=== PATIENT | female | born 1940 | race Caucasian/White ===

== ENCOUNTER → 2016-10-20 | Outpatient (CLI) | payer OTHER ==
--- NOTE | 2016-10-20 11:21 | MR ---
MRI Thoracic Spine Without Contrast 0920 hours History: M54.6, thoracic pain. Prior osteomyelitis. Status post T10-T11 fusion. Comparison: MRI December 2004. Technique: Sagittal T1/T2/STIR and axial T1/T2-weighted MR series of the thoracic spine without contr ast. Findings: No acute thoracic compression fracture, bone marrow edema, diskitis, osteomyelitis, or epid ural abscess. Sagittal images through the lower thoracic spine demonstrate C5-C6 and C6-C7 severe degenerative disk disease with dorsal disk/osteophyte complexes resulting in moderate to severe central canal stenosis with cord compression and deformity, worse at C5-C6. T1-T2: Moderate degenerative disk disease with left paramedian disk/osteophyte complex resulting in m ild central canal stenosis and mild to moderate bilateral neural foraminal stenosis. T2-T3: Mild degenerative disk disease with minimal dorsal disk/osteophyte complex. No central canal o r neural foraminal stenosis. T3-T4: Mild degenerative disk disease with ventral osteophytes. No disk herniation or stenosis. T4-T5: Mild degenerative disk disease with minimal dorsal disk/osteophyte complex. No central canal o r neural foraminal stenosis. T5-T6: Mild degenerative disk disease with minimal dorsal disk/osteophyte complex. No central canal o r neural foraminal stenosis. T6-T7: Mild degenerative disk disease with dorsal disk/osteophyte complex from a right paramedian dis k protrusion and moderate bilateral facet arthropathy resulting in mild central canal stenosis and mi ld to moderate right neural foraminal stenosis. T7-T8: Moderate degenerative disk disease with bilateral paramedian disk/osteophyte complexes and sup erimposed focal disk herniation, protrusion, resulting in severe central canal stenosis with cord com pression and deformity and mild to moderate bilateral neural foraminal stenosis. No cord edema or mye lomalacia. T8-T9: Moderate degenerative disk disease with right and left paramedian dorsal disk/osteophyte compl exes resulting in severe central canal stenosis with cord compression and deformity and mild to moder ate bilateral neural foraminal stenosis. No cord edema or myelomalacia. T9-T10: Severe degenerative disk disease with endplate diskogenic changes, circumferential disk/osteo phyte complex and moderate bilateral facet arthropathy resulting in severe central canal stenosis wit h mild cord compression and moderate bilateral neural foraminal stenosis. No definite cord edema. T10-T11: Almost complete loss of disk space with apparent bony fusion in the region of previous diski tis with moderate bilateral facet arthropathy resulting in moderate to severe right neural foraminal stenosis and mild to moderate left neural foraminal stenosis without central canal stenosis. T11-T12: Severe degenerative disk disease with severe loss of disk height, circumferential disk bulge and osteophytes, retrolisthesis and severe bilateral facet arthropathy resulting in moderate central canal stenosis and moderate to severe bilateral neural foraminal stenosis. No cord compression or de formity. T12-L1: No disk herniation or stenosis. Impression: 1. Severe cervical spondylosis at C5-C6 and C6-C7 resulting in severe central canal stenosis with cor d compression. Consider MRI cervical spine for further evaluation. 2. No evidence of thoracic diskitis, osteomyelitis, or epidural abscess. 3. T7-T8: Severe central canal stenosis with cord compression and deformity and mild to moderate bila teral neural foraminal stenosis secondary to moderate degenerative disk disease with bilateral parame miranda disk/osteophyte complexes and disk herniation. 4. T8-T9: Severe central canal stenosis secondary to moderate degenerative disk disease with dorsal d isk/osteophyte complexes. 5. T9-T10: Severe central canal stenosis and cord compression with moderate bilateral neural foramina l stenosis secondary to severe degenerative disk disease with dorsal disk/osteophyte complexes and mo derate bilateral facet arthropathy. 6. T10-T11: Residual disk space narrowing from prior diskitis. No recurrent diskitis. However, residu al severe disk space narrowing resulting in moderate to severe bilateral neural foraminal stenosis wi thout central canal stenosis. 7. T11-T12: Severe degenerative disk disease and degenerative retrolisthesis with disk/osteophyte com plexes resulting in moderate central canal stenosis and moderate to severe bilateral neural foraminal stenosis.
== END ==
LOC: FIMAGING 09:00
PROVIDERS: ATTEND Physical Medicine & Rehabilitation
DX: M47.892 Other spondylosis, cervical region (principal); M48.02 Spinal stenosis, cervical region; M48.04 Spinal stenosis, thoracic region; M51.34 Other intervertebral disc degeneration, thoracic region; M46.94 Unspecified inflammatory spondylopathy, thoracic region; Z98.1 Arthrodesis status

== ENCOUNTER → 2016-10-28 | Outpatient (CLI) | payer OTHER ==
--- NOTE | 2016-10-28 19:51 | MR ---
MRI of the Cervical Spine (Without Contrast) History: Evaluate for cervical spinal stenosis. Cervical disease identified on prior thoracic MRI. Technique: Sagittal T1 and T2 sequences. Axial T2 and gradient echo sequences. Findings: C2-C3: Negative. C3-C4: Disk desiccation and central annular bulging, without discrete disk prolapse or neural impinge ment. C4-C5: Disk desiccation and intervertebral disk height loss, without discrete disk prolapse or neural impingement. C5-C6: Moderate-sized subligamentous central disk protrusion, contributing to moderate acquired centr al canal stenosis, without cervical cord myelomalacia. Foramina are moderately stenotic bilaterally. C6-C7: Moderate-sized subligamentous central disk protrusion, contributing to moderate acquired centr al canal stenosis. Neural foramina are moderately stenotic bilaterally secondary to annular bulging. C7-T1: Negative. The cervical cord maintains normal signal intensity. The craniocervical junction appears normal. Impression: 1. Moderate-sized subligamentous central disk protrusions at C5-C6 and C6-C7, with secondary moderate acquired central canal stenosis. 2. Associated bilateral neural foraminal stenosis at both levels.
== END ==
LOC: FIMAGING 15:08
PROVIDERS: ATTEND Physical Medicine & Rehabilitation
DX: M48.02 Spinal stenosis, cervical region (principal); M50.822 Other cervical disc disorders at C5-C6 level; M50.823 Other cervical disc disorders at C6-C7 level

== ENCOUNTER 2017-01-02 07:56 | Day surgery (SDC) | payer OTHER ==
[2017-01-02] MEDS ORDERED: MIDAZOLAM 2 MG/2 ML VIAL IVP ONE (08:03)
[2017-01-02] MEDS ORDERED: PROPOFOL 200 MG/20 ML VIAL IVP ONE (08:03)
[2017-01-02] MEDS ORDERED: fentaNYL 100 MCG/2 ML INJ IVP ONE (08:03)
[2017-01-02] MEDS ORDERED: NS 500 ML IV ONE (08:03)
[2017-01-02] MEDS ORDERED: BENZOCAINE UNIT DOSE SPRAY HURRICAINE MM ONE (08:03)
--- NOTE | 2017-01-02 08:35 | CPEKG ---
Heart Rate: 61 RR Interval: 984 P-R Interval: 176 QRSD Interval: 90 QT Interval: 476 QTC Interval: 480 P [place]: 27 QRS [place]: 7 T Wave [place]: 15 EKG Severity - NORMAL ECG - EKG Impression: SINUS RHYTHM Electronically Signed By: Balaji Deutsch 02-Jan-2017 09:17:36
== END 2017-01-02 08:30 | disposition home or self-care (01) ==
LOC: FCATH 07:56
PROVIDERS: ATTEND Internal Medicine Cardiovascular Disease
DX: I48.91 Unspecified atrial fibrillation (principal); I50.33 Acute on chronic diastolic (congestive) heart failure; I10 Essential (primary) hypertension; I25.10 Atherosclerotic heart disease of native coronary artery without angina pectoris; Z53.09 Procedure and treatment not carried out because of other contraindication

== ENCOUNTER → 2017-01-12 | Outpatient (CLI) | payer OTHER | LOC: BHFA 15:00 | PROVIDERS: ATTEND Internal Medicine Cardiovascular Disease | DX: I25.10 Atherosclerotic heart disease of native coronary artery without angina pectoris (principal); I48.91 Unspecified atrial fibrillation; I50.32 Chronic diastolic (congestive) heart failure; I27.2 Other secondary pulmonary hypertension ==

== ENCOUNTER → 2017-06-26 | Outpatient (CLI) | payer OTHER | LOC: FIMAGING 08:48 | PROVIDERS: ATTEND Internal Medicine | DX: Z12.31 Encounter for screening mammogram for malignant neoplasm of breast (principal) | CPT/HCPCS: G0202 ==

== ENCOUNTER → 2017-09-11 | Outpatient (CLI) | payer OTHER | LOC: BHFA 10:00 | PROVIDERS: ATTEND Internal Medicine Cardiovascular Disease | DX: R06.02 Shortness of breath (principal); I25.10 Atherosclerotic heart disease of native coronary artery without angina pectoris ==

== ENCOUNTER 2017-11-08 11:11 | Observation (INO) | payer OTHER ==
--- NOTE | 2017-11-08 11:41 | CPEKG ---
Heart Rate: 62 RR Interval: 968 P-R Interval: 184 QRSD Interval: 80 QT Interval: 476 QTC Interval: 484 P [place]: 26 QRS [place]: 2 T Wave [place]: 19 EKG Severity - NORMAL ECG - EKG Impression: SINUS RHYTHM Electronically Signed By: Shabbir Lerma 08-Nov-2017 13:30:26
[2017-11-08 11:56] LABS: PLATELET COUNT 79 10^3/uL (150-400)
[2017-11-08] MEDS ORDERED: NS 1,000 ML IV ONE (12:06)
[2017-11-08] MEDS ORDERED: IOPAMIDOL (ISOVUE 370) 100 ML BTL IV ONE (13:10)
--- NOTE | 2017-11-08 13:15 | EDPHY ---
H & P Stated Complaint: sent to r/o PNA/syncope this week/ hurt r ankle Time Seen by Provider: 11/08/17 11:28 HPI/ROS: Chief Complaint: Cough, syncope, ankle injury HPI: 77-year-old woman had upper respiratory symptoms for the last several days with a nonproductive cough. Patient states she has also been having episodes of feeling lightheadedness actually fainted 3 4 times over the last couple of days. These have been usually after standing but she also had an episode when she passed out on the toilet yesterday. This morning she got up and was walking and while walking became lightheaded and fainted once again. She woke with severe right ankle pain. She was seen by her primary care physician's office to evaluate for pneumonia was sent here for further evaluation. Has past medical history significant for hypertension coronary artery disease status post stenting and has had atrial fibrillation in the past. She is not currently anticoagulated. No fevers or chills. She has had this persistent cough for about a week. No chest pain. No abdominal pain. No nausea or vomiting. She did get a flu vaccine this year. ROS: 10 point Review of Systems is negative except as noted in the HPI. PMH: Spinal infection requiring open or cauda me for drainage 20 years ago, sigmoid colectomy status post diverticulitis with subsequent pulmonary embolus Hypertension Coronary artery disease status post stenting Atrial fibrillation in the past Social History: No smoking, no alcohol, no recreational drug use Family History: non-contributory Physical Exam: Gen: Awake, Alert, No Distress HEENT: Nose: no rhinorrhea Eyes: PERRLA, EOMI Mouth: Moist mucosa Neck: Supple, no JVD Chest: nontender, mild expiratory colles at the left base at the expiration, no wheeze Heart: S1, S2 normal, no murmur Abd: Soft, non-tender, no guarding Back: no CVA tenderness, no midline tenderness Ext: Right ankle is deformed and edematous with diffuse tenderness. Sensations intact distally. She has 2+ dorsalis pedis pulses. Capillary refills less than 2 sec. Skin: no rash Neuro: CN II-XII intact, Sensation grossly intact, Strength 5/5 in bilateral upper and lower extremities - Personal History Current Tetanus/Diphtheria Vaccine: Yes Tetanus Vaccine Date: 10/21/2010 - Medical/Surgical History Hx Asthma: No Hx Chronic Respiratory Disease: No Hx Diabetes: No Hx Cardiac Disease: Yes Hx Renal Disease: No Hx Cirrhosis: No Hx Alcoholism: No Hx HIV/AIDS: No Hx Splenectomy or Spleen Trauma: No Other PMH: HTN, cardiac stent, glaucoma, appy, thoracotomy, hysterectomy, knee replacement - Social History Smoking Status: Never smoked Constitutional: Initial Vital Signs Temperature (C) 36.3 C 11/08/17 11:17 Heart Rate 66 11/08/17 11:17 Respiratory Rate 18 11/08/17 11:17 Blood Pressure 110/64 11/08/17 11:17 O2 Sat (%) 95 11/08/17 11:17 O2 Delivery Mode Room Air Allergies/Adverse Reactions: No Known Allergies Allergy (Verified 11/08/17 11:16) Home Medications: Medication Instructions Recorded Aspirin [Aspirin 81mg (*)] 162 mg PO HS 10/23/15 Atorvastatin Calcium [Lipitor 10 10 mg PO HS 10/23/15 mg (*)] Brimonidine/Timolol [Combigan (*)] 1 drop EACHEYE BID 10/23/15 Dorzolamide 2% [Trusopt 2% (*)] 1 drops LEFTEYE BID 10/23/15 Linaclotide [Linzess] 145 mcg PO DAILY 10/23/15 Pantoprazole Sodium [Protonix 40mg 40 mg PO DAILY 10/23/15 (*)] Travoprost Z 0.004% [Travatan Z 1 drops EACHEYE HS 10/23/15 0.004% (*)] rOPINIRole HCL [Requip 2mg (*)] 4 mg PO HS 10/23/15 Labetalol HCl [Trandate 200 mg (*)] 400 mg PO BID #0 tab 10/25/15 amLODIPine BESYLATE [Norvasc 5 mg 5 mg PO DAILY #30 tab 10/25/15 (*)] Gabapentin 11/08/17 Potassium 11/08/17 Medical Decision Making - Diagnostics EKG Interpretation: ECG time 11:39 a.m., sinus rhythm with a rate of 62, normal axis, normal intervals, no acute ST or T-wave changes. Impression: Normal ECG. Imaging Results: Imaging Impressions Ankle X-Ray 11/08/17 11:42 Impression: Bimalleolar fracture. Chest X-Ray 11/08/17 11:42 Impression: 1. Chronic or recurrent airways disease. Previous pneumonia has cleared. 2. Cardiomegaly without failure. ED Course/Re-evaluation: 77-year-old woman with recent upper respiratory symptoms he has had multiple syncopal episodes the last 2 days. She has an obvious ankle deformity. Will worker out for both infectious, orthopedic and syncope evaluation. Given her multiple syncopal events she will require admission. ECG is unremarkable Right ankle x-ray shows a bimalleolar fracture. She has been placed in a posterior sugar-tong splint. I have inspected after the splint she has got good immobility with normal perfusion. Will consult Orthopedics. I have discussed with Orthopedics PA. They are happy with a posterior and sugar -tong splint. Nonweightbearing. They do not feel the need to see the patient in the hospital and will be able to follow up with her as an outpatient. She is positive for influenza B. D-dimer is elevated at 3.0. CT angiogram of the chest is ordered. I have discussed with Nikki Morocho, hospitalist DENTAL TECHNICIAN APPRENTICE. Will admit to Dr. tS for further evaluation. - Data Points Laboratory Results: Laboratory Results 11/08/17 11:40 11/08/17 11:40 11/08/17 11/08/17 11/08/17 12:13 11:40 11:40 WBC RBC Hgb Hct MCV MCH MCHC RDW Plt Count MPV Neut % (Auto) Lymph % (Auto) Payne % (Auto) Eos % (Auto) Baso % (Auto) Nucleat RBC Rel Count Absolute Neuts (auto) Absolute Lymphs (auto) Absolute Monos (auto) Absolute Eos (auto) Absolute Basos (auto) Absolute Nucleated RBC Immature Gran % Immature Gran # D-Dimer 3.09 ug/mLFEU H ug/mLFEU (0.00-0.50) Sodium 138 mEq/L mEq/L (135-145) Potassium 4.7 mEq/L mEq/L (3.5-5.2) Chloride 98 mEq/L mEq/L (97-110) Carbon Dioxide 22 mEq/l mEq/l (22-31) Anion Gap 18 mEq/L H mEq/L (8-16) BUN 26 mg/dL H mg/dL (7-23) Creatinine 1.4 mg/dL H mg/dL (0.6-1.0) Estimated GFR 36 Glucose 104 mg/dL H mg/dL (70-100) Calcium 8.8 mg/dL mg/dL (8.5-10.4) Troponin I < 0.012 ng/mL ng/mL (0.000-0.034) Nasal Influenza A PCR NEGATIVE FOR FLU A (NEGATIVE) Nasal Influenza B PCR FLU B DETECTED H (NEGATIVE) 11/08/17 11:40 WBC 5.20 10^3/uL 10^3/uL (3.80-9.50) RBC 4.76 10^6/uL 10^6/uL (4.18-5.33) Hgb 13.9 g/dL g/dL (12.6-16.3) Hct 41.9 % % (38.0-47.0) MCV 88.0 fL fL (81.5-99.8) MCH 29.2 pg pg (27.9-34.1) MCHC 33.2 g/dL g/dL (32.4-36.7) RDW 14.0 % % (11.5-15.2) Plt Count 79 10^3/uL L 10^3/uL (150-400) MPV 12.9 fL H fL (8.7-11.7) Neut % (Auto) 68.4 % % (39.3-74.2) Lymph % (Auto) 18.5 % % (15.0-45.0) Payne % (Auto) 12.3 % % (4.5-13.0) Eos % (Auto) 0.2 % L % (0.6-7.6) Baso % (Auto) 0.2 % L % (0.3-1.7) Nucleat RBC Rel Count 0.0 % % (0.0-0.2) Absolute Neuts (auto) 3.56 10^3/uL 10^3/uL (1.70-6.50) Absolute Lymphs (auto) 0.96 10^3/uL L 10^3/uL (1.00-3.00) Absolute Monos (auto) 0.64 10^3/uL 10^3/uL (0.30-0.80) Absolute Eos (auto) 0.01 10^3/uL L 10^3/uL (0.03-0.40) Absolute Basos (auto) 0.01 10^3/uL L 10^3/uL (0.02-0.10) Absolute Nucleated RBC 0.00 10^3/uL 10^3/uL (0-0.01) Immature Gran % 0.4 % % (0.0-1.1) Immature Gran # 0.02 10^3/uL 10^3/uL (0.00-0.10) D-Dimer Sodium Potassium Chloride Carbon Dioxide Anion Gap BUN Creatinine Estimated GFR Glucose Calcium Troponin I Nasal Influenza A PCR Nasal Influenza B PCR Medications Given: Discontinued Medications Sodium Chloride (Ns) 1,000 mls @ 0 mls/hr IV ONCE ONE; Wide Open PRN Reason: Protocol Stop: 11/08/17 12:07 Last Admin: 11/08/17 12:26 Dose: 1,000 mls Departure - Departure Disposition: [facility] Inpatient Acute Clinical Impression: Syncope, Influenza, Bimalleolar ankle fracture Condition: Fair Referrals: Honey Oconnell MD [Primary Care Provider] - As per Instructions
[2017-11-08] MEDS ORDERED: HYDROmorphONE/DILAUDID 2 MG TAB PO PRN (13:58)
[2017-11-08] MEDS ORDERED: ONDANSETRON DISINTEGRATING 4 MG TAB PO PRN (13:58)
[2017-11-08] MEDS ORDERED: ACETAMINOPHEN 325 MG TAB PO PRN (13:58)
[2017-11-08] MEDS ORDERED: ONDANSETRON 4 MG/2 ML VIAL IVP PRN (13:58)
[2017-11-08] MEDS ORDERED: HYDROmorphONE/DILAUDID 1 MG/ML INJ IVP PRN (13:58)
[2017-11-08] MEDS ORDERED: POLYETHYLENE GLYCOL 3350 17 GM PKT PO PRN (14:06)
[2017-11-08] MEDS ORDERED: BISACODYL 10 MG SUPP PR PRN (14:06)
[2017-11-08] MEDS ORDERED: LACTULOSE 20 GM/30 ML UDCUP PO PRN (14:06)
[2017-11-08] MEDS ORDERED: MAGNESIUM HYDROXIDE 30 ML UDCUP PO PRN (14:06)
[2017-11-08] MEDS ORDERED: guaiFENesin/CODEINE PHOS 10 ML UDCUP PO PRN (14:51)
[2017-11-08] MEDS ORDERED: BENZONATATE 100 MG CAP PO PRN (14:51)
[2017-11-08] MEDS ORDERED: oxyCODONE IR 5 MG TAB ONE (15:03)
[2017-11-08] MEDS: oxyCODONE IR 5 MG TAB PO PRN ×2 (15:06→19:16)
--- NOTE | 2017-11-08 15:26 | PDGENHP ---
History and Physical - Chief Complaint Acute syncope - History of Present Illness Primary care provider: Dr. Honey Oconnell Primary dry wall plasterer: Dr. Rony Orourke HPI: 77-year-old female presenting with acute syncope characterized as complete loss of consciousness with onset of symptoms on the day of this presentation, but previous episodes during the days leading up to this presentation. This occurred in the context of approximately 2 weeks of general malaise, associated lightheadedness, exacerbated by standing and ambulating, nonproductive cough. She has had poor appetite and low oral intake of solids and liquids. She has continued to take all of her home medications as prescribed. She saw her primary dry wall plasterer 1 week ago, he reviewed her echocardiogram from August of 2017, no interventions were performed at that time. Prior to her onset of the symptoms, the patient had otherwise been experiencing a couple years of exertional shortness of breath, low energy. During the past 2 weeks, she has not noted a significant worsening of either of those 2 symptoms , but she has had these episodes of on anticipated, brief loss of consciousness , when she awakens on the floor. On the day of this presentation, the patient experienced loss of consciousness without any precipitating chest pain or palpitations, awoke on the floor, with pain located in her right ankle. The pain is exacerbated by ambulating. She has also noted a bruise on her right hip. History Information - Allergies/Home Medication List Allergies/Adverse Reactions: JOSÉ MIGUEL Inhibitors Allergy (Verified 11/08/17 14:27) Other-Enter Comments Home Medications: Aspirin [Aspirin 81mg (*)] 162 mg PO HS 10/23/15 [Last Taken 11/07/17] Atorvastatin Calcium [Lipitor 10 mg (*)] 10 mg PO DAILY 10/23/15 [Last Taken ] Brimonidine/Timolol [Combigan (*)] 1 drop EACHEYE BID 10/23/15 [Last Taken 11/08] Dorzolamide 2% [Trusopt 2% (*)] 1 drops LEFTEYE BID 10/23/15 [Last Taken ] Pantoprazole Sodium [Protonix 40mg (*)] 40 mg PO DAILY 10/23/15 [Last Taken ] Travoprost Z 0.004% [Travatan Z 0.004% (*)] 1 drops EACHEYE HS 10/23/15 [Last Taken 11/07/17] rOPINIRole HCL [Requip 2mg (*)] 3 mg PO HS 10/23/15 [Last Taken 11/07/17] Cephalexin [Keflex (*)] 2,000 mg PO ONCE 11/08/17 [Last Taken Unknown] Ethacrynic Acid [Edecrin 25 MG (*)] 100 mg PO DAILY 11/08/17 [Last Taken ] Gabapentin [Neurontin 300 MG (*)] 300 mg PO TID 11/08/17 [Last Taken 11/08/17] Hydrocodone/Acetaminophen [Thornton 5/325 (*)] 1 - 2 tab PO Q4H PRN 11/08/17 [Last Taken Unknown] Labetalol HCl [Trandate 200 mg (*)] 600 mg PO TID 11/08/17 [Last Taken 11/08/17] Potassium Chloride 20 meq PO BID 11/08/17 [Last Taken 11/08/17] Spironolactone [Aldactone 25 MG (*)] 12.5 mg PO DAILY 11/08/17 [Last Taken 11/08] I have personally reviewed and updated: family history, medical history, social history, surgical history - Past Medical History coronary artery disease (Previous cardiac stent), GERD, glaucoma, hypertension, hyperlipidemia Additional medical history: Chronic kidney disease stage 3 with baseline creatinine 1.1-1.2. Provoked pulmonary embolism remotely. Provoked atrial fibrillation remotely, symptomatic at that time. Restless leg syndrome. VZV. Peptic ulcer disease - Surgical History Additional surgical history: Spinal drainage 20 years ago. Partial colectomy for diverticulitis. Appendectomy. Hysterectomy. 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 exercises with weights twice weekly Review of Systems Review of Systems: ROS: 10pt was reviewed & negative except for what was stated in HPI & below Constitutional: Reports: malaise, weakness Respiratory: Reports: cough (Nonproductive) Neurological: Reports: other (Loss of consciousness) Physical Exam Physical Exam: Temp Pulse Resp BP Pulse Ox 36.3 C 71 16 115/68 96 01/24/18 11:17 11/08/17 14:00 11/08/17 14:00 11/08/17 14:00 11/08/17 14:00 Constitutional: no apparent distress, appears nourished, not in pain, uncomfortable (Right foot) Eyes: PERRL, anicteric sclera, EOMI Ears, Nose, Mouth, Throat: moist mucous membranes, hearing normal, ears appear normal, no oral mucosal ulcers Cardiovascular: regular rate and rhythym, no murmur, rub, or gallop, No edema Respiratory: no respiratory distress, no rales or rhonchi, clear to auscultation Gastrointestinal: normoactive bowel sounds, soft, non-tender abdomen, no palpable masses, distension (Mild) Genitourinary: no bladder fullness, no bladder tenderness Musculoskeletal: other (Right lower extremity cast) Neurologic: AAOx3, sensation intact bilaterally, CN II-XII Intact, No weakness ( Motor strength 5/5 bilateral distal toes), No facial droop Psychiatric: interacting appropriately, not anxious, not encephalopathic, thought process linear Lab Data & Imaging Review 11/08/17 11:40 11/08/17 11:40 WBC 5.20 10^3/uL (3.80-9.50) 11/08/17 11:40 RBC 4.76 10^6/uL (4.18-5.33) 11/08/17 11:40 Hgb 13.9 g/dL (12.6-16.3) 11/08/17 11:40 Hct 41.9 % (38.0-47.0) 11/08/17 11:40 MCV 88.0 fL (81.5-99.8) 11/08/17 11:40 MCH 29.2 pg (27.9-34.1) 11/08/17 11:40 MCHC 33.2 g/dL (32.4-36.7) 11/08/17 11:40 RDW 14.0 % (11.5-15.2) 11/08/17 11:40 Plt Count 79 10^3/uL (150-400) L 11/08/17 11:40 MPV 12.9 fL (8.7-11.7) H 11/08/17 11:40 Neut % (Auto) 68.4 % (39.3-74.2) 11/08/17 11:40 Lymph % (Auto) 18.5 % (15.0-45.0) 11/08/17 11:40 [place]in[place] % (Auto) 12.3 % (4.5-13.0) 11/08/17 11:40 Eos % (Auto) 0.2 % (0.6-7.6) L 11/08/17 11:40 Baso % (Auto) 0.2 % (0.3-1.7) L 11/08/17 11:40 Nucleat RBC Rel Count 0.0 % (0.0-0.2) 11/08/17 11:40 Absolute Neuts (auto) 3.56 10^3/uL (1.70-6.50) 11/08/17 11:40 Absolute Lymphs (auto) 0.96 10^3/uL (1.00-3.00) L 11/08/17 11:40 Absolute Monos (auto) 0.64 10^3/uL (0.30-0.80) 11/08/17 11:40 Absolute Eos (auto) 0.01 10^3/uL (0.03-0.40) L 11/08/17 11:40 Absolute Basos (auto) 0.01 10^3/uL (0.02-0.10) L 11/08/17 11:40 Absolute Nucleated RBC 0.00 10^3/uL (0-0.01) 11/08/17 11:40 Immature Gran % 0.4 % (0.0-1.1) 11/08/17 11:40 Immature Gran # 0.02 10^3/uL (0.00-0.10) 11/08/17 11:40 D-Dimer 3.09 ug/mLFEU (0.00-0.50) H 11/08/17 11:40 Sodium 138 mEq/L (135-145) 11/08/17 11:40 Potassium 4.7 mEq/L (3.5-5.2) 11/08/17 11:40 Chloride 98 mEq/L (97-110) 11/08/17 11:40 Carbon Dioxide 22 mEq/l (22-31) 11/08/17 11:40 Anion Gap 18 mEq/L (8-16) H 11/08/17 11:40 BUN 26 mg/dL (7-23) H 11/08/17 11:40 Creatinine 1.4 mg/dL (0.6-1.0) H 11/08/17 11:40 Estimated GFR 36 11/08/17 11:40 Glucose 104 mg/dL (70-100) H 11/08/17 11:40 Calcium 8.8 mg/dL (8.5-10.4) 11/08/17 11:40 Troponin I < 0.012 ng/mL (0.000-0.034) 11/08/17 11:40 Nasal Influenza A PCR NEGATIVE FOR FLU A (NEGATIVE) 11/08/17 12:13 Nasal Influenza B PCR FLU B DETECTED (NEGATIVE) H 11/08/17 12:13 Visualized and Interpreted Chest x-ray results: Yes Chest X-Ray results: no infiltrate (Cardiomegaly) Visualized and Interpreted EKG results: Yes EKG Interpretation: Positive for: other (T-wave inversion in lead 3) Assessment & Plan Assessment: 77-year-old female presenting with acute syncope and traumatic right bimalleolar fracture in the setting of influenza B Plan: 1. Influenza B viral syndrome. Symptoms include nonproductive cough, lethargy , anorexia, diarrhea, resulting in hypovolemia and most likely precipitating cause of her syncope -supportive care with antitussives, mucolytic -continue IV fluids -continue dietary intake 2. Syncope. Acute, new problem this provider, further workup indicated. Most likely secondary to orthostasis in the setting of hypovolemia and ongoing antihypertensive medications -ruled out pulmonary embolism with negative CT angiogram -given patient's trauma and bruise along her right hip, get hip x-ray -get orthostatic vital signs next continue on IV normal saline, repeat orthostatics in a.m. -monitor on telemetry overnight given history of atrial fibrillation, she previously had symptomatic atrial fibrillation and has not been experiencing any of those symptoms in the context of this episode of care -hold off on further neurovascular workup given that the most likely cause is hypovolemia -hold antihypertensive medications -reviewed outside records including 11/11/[address] Manuel Solares, describing normal ejection fraction, elevated end-diastolic filling pressure, diffuse nonobstructive coronary disease, do not believe that further cardiac risk stratification is indicated at this point given that the patient reports a normal echocardiogram from August of 2017 and patient's cardiac catheterization was performed in the context of the exertional shortness of breath and lethargy she has been experiencing for the past 2 years with no clearly identifiable cardiopulmonary cause other than possible pulmonary hypertension 3. Acute kidney injury on chronic kidney disease stage 3. Most likely secondary to hypovolemia, baseline serum creatinine level 1.11.2, currently 1.4 with elevated BUN, reported hypovolemia -continue IV normal saline, monitor strict I&Os, daily creatinine level 4. Traumatic bimalleolar fracture. Right ankle, orthopedics contacted by emergency department, recommended the patient be placed in a splint, be nonweightbearing, pain medication as needed, follow up with Orthopedics as an outpatient -oxycodone as needed, Tylenol as needed -physical occupational therapy eval as, patient reports that she is particularly dexterous on crutches and will likely be able to discharge home tomorrow if above stable 5. Coronary artery disease. Chronic, holding Aldactone, holding labetalol, continue aspirin and statin 6. Thrombocytopenia. Acute on chronic, review of previous CBCs demonstrates mild thrombocytopenia but not to quite this extent, continue to monitor, may recommend outpatient hematology evaluation depending on tomorrow's lab values Diet. Regular Prophylaxis. High risk patient, holding pharmacologic given thrombocytopenia, SCD Code. Full Disposition. Anticipated discharge 11/09, pending further workup as outlined above. I have discussed patient's presentation with Nikki Morocho, hospitalist provider, she has signed out the patient to me for evaluation.
[2017-11-08] MEDS: GABAPENTIN 300 MG CAP PO SCH ×2 (16:53→20:56)
[2017-11-08] MEDS: NS 1,000 ML IV SCH (19:16)
[2017-11-08] MEDS: guaiFENesin 600 MG TAB.ER PO SCH (20:56)
[2017-11-08] MEDS: BRIMONIDINE/TIMOLOL 5 ML OPHT.BTL EACHEYE SCH (20:57)
[2017-11-08] MEDS: DORZOLAMIDE 2% OPTH DROPS LEFTEYE SCH (20:57)
[2017-11-08] MEDS ORDERED: TRAVOPROST Z 0.004% 2.5 ML OPHT.BTL EACHEYE SCH (21:00)
[2017-11-08] MEDS ORDERED: SENNOSIDES/DOCUSATE SODIUM TAB PO SCH (21:00)
[2017-11-08] MEDS ORDERED: ASPIRIN 81 MG CHEWABLE TAB PO SCH (21:00)
[2017-11-09] MEDS: oxyCODONE IR 5 MG TAB PO PRN ×2 (01:25→08:30)
[2017-11-09] MEDS: NS 1,000 ML IV SCH (01:26)
[2017-11-09 04:43] LABS: PLATELET COUNT 55 10^3/uL (150-400)
[2017-11-09] MEDS: GABAPENTIN 300 MG CAP PO SCH (08:31)
[2017-11-09] MEDS: guaiFENesin 600 MG TAB.ER PO SCH (08:31)
[2017-11-09] MEDS: DORZOLAMIDE 2% OPTH DROPS LEFTEYE SCH (08:34)
[2017-11-09] MEDS: BRIMONIDINE/TIMOLOL 5 ML OPHT.BTL EACHEYE SCH (08:34)
[2017-11-09] MEDS ORDERED: ATORVASTATIN CALCIUM 10 MG TAB PO SCH (09:00)
[2017-11-09] MEDS ORDERED: PANTOPRAZOLE SODIUM 40 MG TAB PO SCH (09:00)
--- NOTE | 2017-11-09 10:15 | ASMTCASEMG ---
Living Arrangements What is your living Answers: With Spouse arrangement? Who do you live with? Type Of Residence What kind of residence do Answers: House you live in? Discharge Plan Comments Coordination Status Comments Notes: Pt is a 77 y/o female admitted for syncope, influenza, and bimalleolar fracture. Therapies have been ordered and awaiting recommendations. Needs are TBD at this time. CM to follow. Plan: TBD Date Signed: 11/09/2017 10:14 AM Electronically Signed By:ENEDINA Thomas
[2017-11-09 11:26] VITALS: PULSE 64; RESP 16; TEMP 97.5; O2SAT 91
[2017-11-09 11:47] VITALS: BP 120/68
--- NOTE | 2017-11-09 15:23 | GCON ---
[f rep st] CONSULTATION ORTHOPEDIC CONSULTATION NOTE. DATE OF CONSULTATION: 11/09/2017 REASON FOR CONSULTATION: Right bimalleolar ankle fracture. HISTORY OF PRESENT ILLNESS: The patient is a 77-year-old woman who presented with upper respiratory symptoms. She had a feeling of lightheadedness and fainted. She struck her right hip and twisted he r ankle. 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 Radiographs of the ankle did show a bimalleolar ankle fracture with mild displacement and slight widening of the ankle mortise. She was placed into a compressive dressing and posterior splint and a dmitted for her respiratory symptomatology. REVIEW OF SYSTEMS: Negative with the exception of HPI. MEDICAL HISTORY: Includes coronary artery disease status post stent placement, history of hypertensi on, history of thoracic vertebral osteomyelitis, history of diverticulitis, history of pulmonary embo kiana, history of atrial fibrillation. SOCIAL HISTORY: Nonsmoker. No current alcohol use. No recreational drug use. EXAMINATION: Patient is alert, oriented, and cooperative with exam. Examination of the right lower extremity reveals 1+ dorsalis pedis pulse. Sensation is intact. She is able to flex, extend the toe s. Skin is in good shape. Splint is well positioned. X-rays reviewed which show the bimalleolar ankle fracture with moderate displacement. This is a supi [place], external rotation, grade 4 injury with involvement of both medial and lateral malleoli and hi gh suspicion that her anterior tib-fib ligament is disrupted. PLAN: The patient will be discharged. She will remain nonweightbearing with the use of either a wal ker or crutches. She will follow up with Dr. Pineda once she resolves her upper respiratory infection . Anticipate seeing her next Monday for further evaluation and consideration of scheduling of an ope n reduction, internal fixation of her right bimalleolar ankle fracture. /[id number]/MODL
--- NOTE | 2017-11-09 15:38 | ASDISCHSUM ---
Discharge Information Plan Status:Home with No Needs Medically Cleared to Leave:11/08/2017 Discharge Date:11/09/2017 03:19 PM CM D/C Disposition: ADT D/C Disposition:Home, Routine, Self-Care Projected Discharge Date:11/09/2017 12:00 AM Transportation at D/C: Discharge Delay Reason: Follow-Up Date:11/09/2017 12:00 AM Discharge Slot: Final Diagnosis: Placement Information Patient Contact Information Contact Name:DARLIN Relationship: Address:[address] [place] City:[place] Alternate Phone: State/Zip Code:[place] [address] Email: Financial Information Financial Class: Primary Plan Desc:MEDICARE OUTPATIENT Primary Plan Number:[id number] [facility] Secondary Plan Number:[id number] Assessment Information [facility] Initial CM Assessment Living Arrangements What is your living Answers: With Spouse arrangement? Who do you live with? Type Of Residence What kind of residence do Answers: House you live in? Discharge Plan Comments Coordination Status Comments Notes: Pt is a 77 y/o female admitted for syncope, influenza, and bimalleolar fracture. Therapies have been ordered and awaiting recommendations. Needs are TBD at this time. CM to follow. Plan: TBD Date Signed: 11/09/2017 10:14 AM Electronically Signed By:ENEDINA Thomas Case Management Discharge Plan Note Case Management Discharge Discharge Order Complete? Answers: Yes Patient to Obtain Answers: via Family Medications Transportation Arranged Answers: Family/Friends EMTALA Complete Answers: No Case Management Transport Answers: No Form Complete Faxed Final Orders Answers: No Agency/Facility Transfer Answers: No Report Printed & Faxed to Receiving Agency Family Notified Answers: Yes Discharge Comments Notes: Discussed pts case in morning rounds. Pt is being discharged today. CM met w/ pt for dispo planning. PT is recommending HC with OT. Pt reports that she is not interested at this time. Dr. Raymundo wrote a prescription for durable medical equipment for a scooter. CM sent prescription along w/ medical records from this hospitalization to [facility]. CM provided pt w/ a copy of the prescription. CM also made a copy for pts chart. CM also provided pt w/ list of loan closets for a walker. CM available for changes. Plan: Independent Date Signed: 11/09/2017 03:37 PM Electronically Signed By:ENEDINA Thomas Intervention Information Intervention Type:*LIANG-Signed Date of Service:11/09/2017 11:55 AM Patient Type:Observation Staff Member:Brynn Sigala Hours: Discipline: Severity: Comment:
--- NOTE | 2017-11-10 01:13 | GDS ---
[f rep st] DISCHARGE SUMMARY DISCHARGE DIAGNOSES: 1. Syncope and fall due to below. 2. Influenza B. 3. Right bimalleolar fracture. 4. History of coronary artery disease. CONSULTANTS: Dr. Bijan Pineda. HOSPITAL COURSE AND STAY BY PROBLEM: Syncope: This patient presented to the hospital after having a syncopal episode. She has been monitored on telemetry without any malignant arrhythmias. Initially , her orthostatics were positive. She received IV hydration. On the afternoon of discharge, her ort hostatics were unremarkable. The patient states she feels well and would like to leave the hospital. She has been afebrile. Initially, presented with a creatinine of 1.4, which has gone down to 1.1. She is tolerating a regular diet. PHYSICAL EXAMINATION: VITAL SIGNS: On day of discharge, blood pressure 135/67, pulse 64, respirator y rate 16, O2 saturation 91% on room air, temperature afebrile. EXTREMITIES: Right foot is neurovascularly intact. Flexes and extends toes. Cap refill is less alisa n 2 seconds. CARDIOVASCULAR: S1, S2. No JVD. LUNGS: Clear. No wheezes, rales, or rhonchi. NEUROLOGIC: Alert and oriented to person, place, and time. DIAGNOSTICS DURING THIS HOSPITAL STAY: CT angio of the chest done 11/08/2017. Was done due to synco pe in the setting of elevated D-dimer and was negative for thrombo pulmonary embolic disease. DISCHARGE MEDICATIONS: Please refer to discharge medication reconciliation [facility] for details. DISCHARGE INSTRUCTIONS: The patient will be discharged from the hospital where she plans to follow u p with Dr. Pineda for repair of her right bimalleolar fracture. She should also have further outpatie nt followup of the thrombocytopenia that was noted during the stay with repeat CBC in the few weeks w ith her primary care provider. She should also have a CBC prior to any operative intervention. /[id number]/MODL
== END 2017-11-09 15:19 | disposition home or self-care (01) ==
LOC: F2W 16:12
PROVIDERS: ADMIT Internal Medicine; ATTEND Family Medicine
PROC: 2W3LX1Z Immobilization of Right Lower Extremity using Splint (ICD-10-PCS; principal; 2017-11-08)
DX: J10.1 Influenza due to other identified influenza virus with other respiratory manifestations (principal); R55 Syncope and collapse; S82.841A Displaced bimalleolar fracture of right lower leg, initial encounter for closed fracture; N17.9 Acute kidney failure, unspecified; S70.01XA Contusion of right hip, initial encounter; D69.6 Thrombocytopenia, unspecified; N18.3 Chronic kidney disease, stage 3 (moderate); I25.10 Atherosclerotic heart disease of native coronary artery without angina pectoris; M16.0 Bilateral primary osteoarthritis of hip; I10 Essential (primary) hypertension; I48.91 Unspecified atrial fibrillation; E78.5 Hyperlipidemia, unspecified; H40.9 Unspecified glaucoma; I51.7 Cardiomegaly; K21.9 Gastro-esophageal reflux disease without esophagitis; G25.81 Restless legs syndrome; Z86.711 Personal history of pulmonary embolism; Z82.49 Family history of ischemic heart disease and other diseases of the circulatory system; Z96.659 Presence of unspecified artificial knee joint; Z95.5 Presence of coronary angioplasty implant and graft
CPT/HCPCS: 27808; 71046; 71275; 73502; 73610; 93005; 97116; 97162; 97166; G0378; G8978; G8979; G8980; G8987; G8988; G8989; Q9967

== ENCOUNTER 2017-11-22 15:08 | Observation (INO) | payer OTHER ==
[2017-11-22] MEDS ORDERED: ceFAZolin 2 GM/SWFI 2 GM/20 ML SYR IVP ONE (15:15)
[2017-11-22] MEDS ORDERED: BUPIVACAINE 0.5% 30 ML SDV ONE (16:05)
--- NOTE | 2017-11-22 16:13 | PDHPUP ---
History & Physical Update H&P update statement: This history and physical update is based on an assessment of the patient which was completed after admission or registration (within 24 hours), but prior to the surgery/procedure.
--- NOTE | 2017-11-22 16:24 | PDANEPAE ---
ANE History of Present Illness here for ankle fracture ORIF ANE Past Medical History - Cardiovascular History Hx Hypertension: Yes Hx Arrhythmias: No Hx Chest Pain: Yes Hx Coronary Artery / Peripheral Vascular Disease: Yes Hx CHF / Valvular Disease: Yes Hx Palpitations: No - Pulmonary History Hx Oxygen in Use at Home: No Hx Sleep Apnea: No - Neurologic History Hx Cerebrovascular Accident: No Hx Seizures: No Hx Dementia: No - Endocrine History Hx Diabetes: No - Renal History Hx Renal Disorders: No - Liver History Hx Hepatic Disorders: No - Neurological & Psychiatric Hx Hx Neurological and Psychiatric Disorders: No - Cancer History Hx Cancer: No - Congenital Disorder History Hx Congenital Disorders: No - GI History Hx Gastrointestinal Disorders: Yes Gastrointestinal History Comment: bleeding ulcer - Other Health History Other Health History: Diverticulitis. Glaucoma - Chronic Pain History Chronic Pain: No - Surgical History Prior Surgeries: Appendectomy 1959. hysterectomy 1959. Thoracotomy 1993. Sigmoid Colectomy 06/2004. EGD 03/2005. Knee cyst 03/2007. Glaucoma implant 2008. right knee arthroplasty 04/2013. Cardiac stent placement 06/2013. Heart cath/angiogram 10/2015 ANE Review of Systems Review of systems is: negative Review of Systems: - Exercise capacity METS (RN): 1 METS ANE Patient History - Allergies Allergies/Adverse Reactions: JOSÉ MIGUEL Inhibitors Allergy (Verified 11/22/17 15:28) Other-Enter Comments - Home Medications Home medications: home medication list seen and reviewed Home Medications: Aspirin [Aspirin 81mg (*)] 162 mg PO HS 10/23/15 [Last Taken 11/21/17] Atorvastatin Calcium [Lipitor 10 mg (*)] 10 mg PO DAILY 10/23/15 [Last Taken 05/02] Brimonidine/Timolol [Combigan (*)] 1 drop EACHEYE BID 10/23/15 [Last Taken 11/22] Dorzolamide 2% [Trusopt 2% (*)] 1 drops LEFTEYE BID 10/23/15 [Last Taken ] Pantoprazole Sodium [Protonix 40mg (*)] 40 mg PO DAILY 10/23/15 [Last Taken 05/02] Travoprost Z 0.004% [Travatan Z 0.004% (*)] 1 drops EACHEYE HS 10/23/15 [Last Taken 11/21/17] rOPINIRole HCL [Requip 2mg (*)] 3 mg PO HS 10/23/15 [Last Taken 11/21/17] Cephalexin [Keflex (*)] 2,000 mg PO ONCE 11/08/17 [Last Taken Unknown] Ethacrynic Acid [Edecrin 25 MG (*)] 100 mg PO DAILY 11/08/17 [Last Taken ] Gabapentin [Neurontin 300 MG (*)] 300 mg PO TID 11/08/17 [Last Taken 11/22/17] Hydrocodone/Acetaminophen [Swain 5/325 (*)] 1 - 2 tab PO Q4H PRN 11/08/17 [Last Taken 11/20/17] Labetalol HCl [Trandate 200 mg (*)] 600 mg PO TID 11/08/17 [Last Taken 11/22/17] Potassium Chloride 20 meq PO BID 11/08/17 [Last Taken 11/22/17] Spironolactone [Aldactone 25 MG (*)] 12.5 mg PO DAILY 11/08/17 [Last Taken 11/22] - NPO status NPO Status: no food or drink >8 hours NPO Since - Liquids (Date): 11/22/17 NPO Since - Liquids (Time): 07:00 NPO Since - Solids (Date): 11/21/17 NPO Since - Solids (Time): 08:30 - Smoking Hx Smoking Status: Never smoked - Family Anes Hx Family Hx Anesthesia Complications: none ANE Labs/Vital Signs - Vital Signs Vital Signs: reviewed preoperatively; see RN documention for details Blood Pressure: 159/76 Heart Rate: 65 Respiratory Rate: 16 Height: 162.56 cm Weight: 68.946 kg ANE Physical Exam - Airway Neck exam: FROM Mallampati Score: Class 1 - Pulmonary Pulmonary: no respiratory distress - Cardiovascular Cardiovascular: regular rate and rhythym - ASA Status ASA Status: III ANE Anesthesia Plan Anesthesia Plan: GA w LMA
[2017-11-22] MEDS ORDERED: fentaNYL 100 MCG/2 ML INJ ONE ×3 (16:38→18:53)
[2017-11-22] MEDS ORDERED: PROPOFOL/EMULSION 500 MG/50 ML BOTTLE IV ONE (16:39)
--- NOTE | 2017-11-22 17:08 | GHP ---
[f rep st] PREOP HISTORY AND PHYSICAL DATE OF ADMISSION: 11/22/2017 CHIEF COMPLAINT: This 77-year-old female presented with right ankle pain. HISTORY OF PRESENT ILLNESS: The patient states that, on November 08, 2017, she had a feeling of light headedness and had a syncopal episode, associated with some upper respiratory symptoms. As she fell, she hit her right hip and twisted her right ankle. Her radiographs at the time in the emergency dep artment did not reveal a hip fracture but did show osteoarthritis in her hip. Radiographs of the ank le did show a bimalleolar ankle fracture, with mild displacement, and slight widening of the ankle mo rtise. She was placed in a compressive dressing and posterior splint and then admitted for her influ jennifer. She was advised to follow up with Dr. Pineda, once her influenza symptoms resolved, and she did present to the clinic to have her ankle addressed today,11/22/2017. Upon seeing the patient, Dr. Jah ching did set the patient up for surgery today, as it has been a couple of weeks since the fracture occ urred, and this does need to be fixed as soon as possible. Since she was seen, the patient continues to have pain. REVIEW OF SYSTEMS: Negative, except as mentioned above. PAST MEDICAL HISTORY: The patient has a history of coronary artery disease with a stent placed in by [facility]. The patient has a history of hypertension, thoracic vertebral osteomyelitis, di verticulitis, a history of postop PE and DVT. She also has a history of mild pulmonary hypertension and atrial fibrillation. She is currently managed by Dr. Hayes at [facility]. SOCIAL HISTORY: The patient is a nonsmoker. She does not currently drink alcohol or use recreationa l drugs. PAST SURGICAL HISTORY: The patient had a partial colectomy for diverticulitis, appendectomy, hystere ctomy, total knee replacement, and spinal drainage 20 years ago. She had a glaucoma implant in 2008. FAMILY HISTORY: The patient's father had an MO at the age of 43. She has a sibling with a seizure d isorder. ALLERGIES TO MEDICATIONS: JOSÉ MIGUEL inhibitors. MEDICATIONS: Labetalol, aspirin, Lipitor, pantoprazole, Requip, potassium, ethacrynic acid, gabapent in, Aldactone, cephalexin before dental procedures, eyedrops for glaucoma, including Travatan, Combig an, and Trusopt. PHYSICAL EXAM: GENERAL: Patient is alert, calm, cooperative, resting comfortably in no acute distre ss. HEENT: Patient's head is atraumatic and normocephalic. Extraocular movements are intact. Nare s are patent. Hearing is grossly normal. Oral mucosa is moist. CARDIOVASCULAR: Distally, patient' s pulses are brisk, capillary refill is brisk, and no edema is present. LUNGS: Respirations are eas y and unlabored. NEUROLOGIC: Sensation is intact to both lower extremities with no deficit to light touch. MUSCULOSKELETAL: Examination of the patient's right lower leg reveals her to be in a splint . PSYCHIATRIC: Patient is answering questions appropriately throughout the exam with a normal mood and affect. DIAGNOSTIC DATA: X-rays, which were obtained in the emergency department, revealed the above-mention ed fracture. ASSESSMENT AND PLAN: The patient is a direct admit to [facility] to have an ORIF of the right bimalleolar f racture this afternoon with Dr. Pineda. The consent was obtained by Dr. Pineda while she was in the inic and signed by both the patient and Dr. Pineda. The expected recuperative timeline was also discu ssed. The patient will make an appointment to follow up with Dr. Pineda for a postop visit 10-14 days after surgery. She will be admitted and consulted on by Cardiology. I did discuss the case with Dr Roberto Hayes prior to surgery. He did give cardiac clearance, based on her history, and felt that, due to the emergent nature of her surgery, no cardiac testing would be needed. A hospitalist consult was a lso requested, given her other comorbidities. Postoperative orders will be placed after surgery. /[id number]/MODL
[2017-11-22] MEDS ORDERED: OXYCODONE/APAP 5/325 TAB PO PRN (17:11)
[2017-11-22] MEDS ORDERED: DEXAMETHASONE 4 MG/ML VIAL IVP PRN (17:11)
[2017-11-22] MEDS ORDERED: ALBUTEROL 3 ML DEYVIAL IH PRN (17:11)
[2017-11-22] MEDS ORDERED: HYDROmorphONE/DILAUDID 1 MG/ML INJ IVP PRN (17:11)
[2017-11-22] MEDS ORDERED: HYDROCODONE/APAP 5/325 TAB PO PRN (17:11)
[2017-11-22] MEDS ORDERED: NALOXONE HCL 0.4 MG/ML INJ IVP PRN (17:11)
[2017-11-22] MEDS ORDERED: ONDANSETRON 4 MG/2 ML VIAL IVP PRN ×2 (17:11→18:34)
[2017-11-22] MEDS ORDERED: TEMAZEPAM 15 MG CAP PO PRN (18:34)
[2017-11-22] MEDS ORDERED: CYCLOBENZAPRINE 10 MG TAB PO PRN (18:34)
[2017-11-22] MEDS ORDERED: PROMETHAZINE HCL 25 MG/ML INJ IVP PRN (18:34)
[2017-11-22] MEDS ORDERED: PROMETHAZINE HCL 25 MG SUPPR PR PRN (18:34)
[2017-11-22] MEDS ORDERED: ONDANSETRON DISINTEGRATING 4 MG TAB PO PRN (18:34)
[2017-11-22] MEDS ORDERED: METOCLOPRAMIDE 10 MG/2 ML VIAL IVP PRN (18:34)
[2017-11-22] MEDS ORDERED: diphenhydrAMINE 25 MG CAP PO PRN (18:34)
--- NOTE | 2017-11-22 18:37 | POSTANESTH ---
Post Anesthetic Evaluation Cardiovascular Status: Normal, Stable Respiratory Status: Normal, Stable Level of Consciousness/Mental Status: Can Participate in Eval Pain Control: Adequate, Prn Tx Ordered Nausea/Vomiting Control: Adequate, Prn Tx Ordered Complications Possibly Related to Anesthesia: None Noted
[2017-11-22] MEDS: fentaNYL 100 MCG/2 ML INJ IVP PRN ×2 (18:55→19:23)
[2017-11-22] MEDS ORDERED: LR 1,000 ML IV SCH ×2 (19:00)
--- NOTE | 2017-11-22 19:44 | GOP ---
[f rep st] OPERATIVE REPORT DATE OF OPERATION: 11/22/2017 SURGEON: Bijan Pineda MD ANESTHESIA: General. PREOPERATIVE DIAGNOSIS: Right bimalleolar ankle fracture. POSTOPERATIVE DIAGNOSIS: Right bimalleolar ankle fracture. PROCEDURE PERFORMED: Open reduction, internal fixation, right bimalleolar ankle fracture. FINDINGS: DESCRIPTION OF PROCEDURE: The patient was taken the operating, administered general anesthesia, plac ed in a supine position. The right lower extremity was prepped and draped in normal sterile fashion. Esmarch exsanguination was performed, followed by elevation of thigh cuff to 275 mmHg pressure. A lateral incision was made over the distal fibula. It was carried through dermal subcutaneous tissues . Sharp and blunt dissection was performed down to the fibular fracture. The periosteum was reflect ed. There was clotted and fibrous tissue within the fracture site that was removed using a House cur ette. A thorough lavage was performed. The fracture was brought out to length by increasing the def ormity and then reducing it with supination/internal rotation maneuver. We were able to get the frac ture reduced. This was secured temporarily with 2 bone clamps. An interfragmentary screw was attemp pat to be placed anterior to posterior. We were able to place this to keep the fracture out to lengt h and then a 1/3 tubular plate was then fashioned to fit the lateral aspect of the fibula. This was secured proximally with 3.5 cortical screws x3, and distally with 3.5 cortical screws x2, and one 4.0 cancellous screw in the most distal screw hole. After plate fixation, the interfragmentary screw wa s found to be loose. We therefore removed it. A thorough lavage was performed with normal saline. A wet sponge was placed within the wound and we addressed the medial malleolar segment of the fractur e. An incision was made through dermal subcutaneous tissues. The deltoid ligament was found reflect ed within the fracture site. This was removed. The fracture was then curetted with an Allis curette , removing fibrous tissue. The fracture was then reduced using a tenaculum clamp. The fracture was secured with 2 K-wires. These were overdrilled with a 2.7 drill and the proximal cortices were overd rilled with a 4.0 drill. Four cancellous screws were then placed. Excellent anatomic fixation was o btained of both fractures. Irrigation was performed with normal saline. Closure was performed of th e deltoid ligament with 3-0 Vicryl suture, followed by closure of the subcutaneous tissues with 4-0 V icryl suture, followed by closure of the dermis with 4-0 Ethilon. The lateral incision was closed in the fascia layer with a 3-0 Vicryl suture, followed by closure of the subcutaneous tissues with a 4- 0 Vicryl suture, followed by closure of the dermis with 4-0 Ethilon. A sterile compression dressing was applied, followed by a posterior splint. The patient tolerated the procedure well, was transferr ed back to recovery in stable condition. There were no operative complications. COMPLICATIONS: None. /[id number]/MODL
[2017-11-22] MEDS: oxyCODONE IR 5 MG TAB PO PRN (20:58)
[2017-11-22 22:13] VITALS: RESP 16
[2017-11-22] MEDS: FAMOTIDINE 20 MG TAB PO SCH (22:41)
[2017-11-23] MEDS: ACETAMINOPHEN 325 MG TAB PO SCH ×3 (00:12→10:07)
[2017-11-23] MEDS: ceFAZolin 2 GM/DEXTROSE 100 ML IV SCH ×2 (01:18→10:16)
[2017-11-23] MEDS: oxyCODONE IR 5 MG TAB PO PRN ×3 (02:20→14:49)
[2017-11-23] MEDS ORDERED: ASPIRIN 325 MG TAB PO SCH (09:00)
--- NOTE | 2017-11-23 09:49 | SOAPPROG ---
SOAP Progress Note Assessment/Plan: Assessment: POD #1 s/p right ankle ORIF: overall doing well, has been compliant in NWB to the area. Pain well controlled. Dispo: -Continue NWB, splinting, use of walker for safe ambulation. -Continue DVT Prophylaxis: SCDs, incentive spirometry. Continue plan per IM/ cardio. -Ok to D/C once cleared by cardio/IM/PT. Appreciate their recommendations. -Advised patient to watch for worsening pain, abnormal numbness/tingling, change in distal ROM, change in heat/color of extremity, claudication, cough, congestion, chest pain, claudication, SOB, dyspnea, fever, chills, abnormal bleeding/oozing/discharge and to seek immediate medical attention if seen. Patient understands/agrees with this plan. -F/U in 10-12 days or prn additional questions/concerns. -Questions call our office at [phone]. -Patient/plan discussed and agreed with Dr. Pineda. 11/23/17 09:44 11/23/17 09:53 Subjective: POD #1 s/p right ankle ORIF: Overall doing well, pain well controlled. Sitting up in chair. Has been attempting to ambulate with use of walker. Denies worsening pain, abnormal numbness/tingling, change in distal ROM, change in heat/color of extremity, claudication, cough, congestion, chest pain, claudication, SOB, dyspnea, fever, chills, abnormal bleeding/oozing/discharge. Objective: Vital Signs Temp Pulse Resp BP Pulse Ox 36.1 C 67 16 110/63 90 L 11/23/17 07:39 11/23/17 07:39 11/23/17 07:39 11/23/17 07:39 11/23/17 07:39 11/22/17 11/23/17 11/24/17 05:59 05:59 05:59 Intake Total 470 Output Total 1110 Balance -640 Patient alert/oriented, able to respond appropriately to questions, no acute distress. HEENT: [place], EOMs intact, moist buccal mucosa, hearing intact. CV: RRR, non-labored breathing, no diaphoresis, calves soft/supple and NTTP b/ l. Brisk cap refill b/l in distal extremities. MS: Right ankle splinted, compartments soft. Passive dorsiflexion/ plantarflexion of right foot digit 1 in all planes produces no reproducible pain in lower compartments. No abnormal change in heat/color noted to extremity. No abnormal bleeding/oozing/discharge noted. NVI with brisk cap refill b/l and gross sensation intact b/l with no focal deficits noted. X-ray: 2 views of right ankle s/p ORIF shows fracture in good position and alignment with hardware in good position/alignment. No evidence of hardware loosening. - Pending Discharge Pending Discharge Within 24 Hours: Yes Pending Discharge Date: 11/24/17 (Once cleared by IM, cardio, PT/OT. ) Pending Discharge Time: 13:00 ICD10 Worksheet Patient Problems: Problems Problem Status Onset Bimalleolar ankle fracture Acute Congestive heart failure Acute Hypertension Acute Influenza Acute Syncope Acute
[2017-11-23] MEDS: FAMOTIDINE 20 MG TAB PO SCH (10:07)
[2017-11-23 11:59] VITALS: BP 142/65; PULSE 57; TEMP 97.8; O2SAT 97
--- NOTE | 2017-11-23 15:05 | ASMTCMCOM ---
CM Note CM Note Notes: Pt medically stable for d/c. PT rec home, no CM d/c needs identified. Date Signed: 11/23/2017 03:04 PM Electronically Signed By:MARIA VICTORIA Jackson
--- NOTE | 2017-11-23 15:11 | ASDISCHSUM ---
Discharge Information Plan Status:Home with No Needs Medically Cleared to Leave: Discharge Date:11/23/2017 03:02 PM CM D/C Disposition:Home, Routine, Self-Care ADT D/C Disposition:Home, Routine, Self-Care Projected Discharge Date:11/23/2017 03:02 PM Transportation at D/C: Discharge Delay Reason: Follow-Up Date:11/23/2017 03:02 PM Discharge Slot: Final Diagnosis: Placement Information Patient Contact Information Contact Name:CAMI Relationship:Daughter Address:[address] [place] Alternate Phone: [facility]/Zip Code:[place] [address] Email: Financial Information Financial Class:Medicare Primary Plan Desc:MEDICARE OUTPATIENT Primary Plan Number:[id number] Secondary Plan Desc:RODRIGO PPO Secondary Plan Number:[id number] Assessment Information [facility] CM Progress Note CM Note CM Note Notes: Pt medically stable for d/c. PT rec home, no CM d/c needs identified. Date Signed: 11/23/2017 03:04 PM Electronically Signed By:MARIA VICTORIA Jackson Intervention Information
== END 2017-11-23 15:02 | disposition home or self-care (01) ==
LOC: F3N 15:08 → EDSTATUS 16:00 → F3N 19:41
PROVIDERS: ADMIT Orthopaedic Surgery Sports Medicine; ATTEND Orthopaedic Surgery Sports Medicine
PROC: 0QSJ04Z Reposition Right Fibula with Internal Fixation Device, Open Approach (ICD-10-PCS; principal; 2017-11-22 16:00)
DX: S82.841A Displaced bimalleolar fracture of right lower leg, initial encounter for closed fracture (principal); W19.XXXD Unspecified fall, subsequent encounter; I25.10 Atherosclerotic heart disease of native coronary artery without angina pectoris; I10 Essential (primary) hypertension; I27.20 Pulmonary hypertension, unspecified; I48.91 Unspecified atrial fibrillation; M16.11 Unilateral primary osteoarthritis, right hip; Z79.82 Long term (current) use of aspirin; Z96.659 Presence of unspecified artificial knee joint; Z95.5 Presence of coronary angioplasty implant and graft; Z86.711 Personal history of pulmonary embolism; Z86.718 Personal history of other venous thrombosis and embolism; Z82.49 Family history of ischemic heart disease and other diseases of the circulatory system
CPT/HCPCS: 27814; 73600; 97161; 97166; C1713; C1769; G8978; G8979; G8980; G8984; G8985; G8986; J0690; J2704; J3010

== ENCOUNTER → 2018-01-11 | Outpatient (CLI) | payer OTHER | LOC: BHFA 08:30 | PROVIDERS: ATTEND Internal Medicine Cardiovascular Disease | DX: I25.10 Atherosclerotic heart disease of native coronary artery without angina pectoris (principal); I27.20 Pulmonary hypertension, unspecified; I50.9 Heart failure, unspecified | CPT/HCPCS: 78452; 93017; A9500; J2785 ==

== ENCOUNTER 2018-11-22 11:06 | Observation (INO) | payer OTHER ==
[2018-11-22] MEDS ORDERED: NS 500 ML IV ONE (11:25)
--- NOTE | 2018-11-22 11:40 | EDPHY ---
H & P Stated Complaint: Syncope (Hx of Same) Time Seen by Provider: 11/22/18 11:34 HPI/ROS: CHIEF COMPLAINT: Syncope HISTORY OF PRESENT ILLNESS: 78-year-old female with hypertension presents after a syncopal episode. She was in her physician's office and had a witnessed syncopal episode. She fell to the floor and struck her head. She did not have any prodromal symptoms. She now feels back to normal. Denies headache, neck pain or other symptoms. History of prior similar syncopal episodes without prodromal symptoms in the past few months. No recent illness. REVIEW OF SYSTEMS: complete 10 point ROS reviewed and is negative except for the noted elements in the HPI - Personal History Current Tetanus Diphtheria and Acellular Pertussis (TDAP): Yes Tetanus Vaccine Date: 10/21/2010 - Medical/Surgical History Hx Asthma: No Hx Chronic Respiratory Disease: No Hx Diabetes: No Hx Cardiac Disease: Yes Hx Renal Disease: No Hx Cirrhosis: No Hx Alcoholism: No Hx HIV/AIDS: No Hx Splenectomy or Spleen Trauma: No Other PMH: HTN, cardiac stent, glaucoma, appy, thoracotomy, hysterectomy, knee replacement, sigmoid colectomy, PE - Social History Smoking Status: Never smoked Alcohol Use: Sober Drug Use: None - Physical Exam Exam: General Appearance: Alert, pleasant and talkative Head: Contusion posteriorly Eyes: Pupils equal and round, no conjunctival pallor or injection ENT, Mouth: Mucous membranes moist Neck: Normal inspection, no midline tenderness, range of motion without pain Respiratory: Lungs are clear to auscultation Cardiovascular: Regular rate and rhythm, no murmur Gastrointestinal: Abdomen is soft and nontender Neurological: Alert, oriented x3, cranial nerves II through XII intact, motor 5 /5, sensory intact to light touch Skin: Warm and dry, no rash Extremities: Nontender, no pedal edema Psychiatric: Mood and affect normal Constitutional: Initial Vital Signs Temperature (C) 36.4 C 11/22/18 11:16 Heart Rate 67 11/22/18 11:16 Respiratory Rate 18 11/22/18 11:16 Blood Pressure 113/46 L 11/22/18 11:16 O2 Sat (%) 96 11/22/18 11:16 O2 Delivery Mode Room Air Allergies/Adverse Reactions: JOSÉ MIGUEL Inhibitors Allergy (Verified 11/22/18 11:16) Other-Enter Comments Home Medications: Medication Instructions Recorded Atorvastatin Calcium [Lipitor 10 10 mg PO DAILY 10/23/15 mg (*)] Brimonidine/Timolol [Combigan (*)] 1 drop EACHEYE BID 10/23/15 Dorzolamide 2% [Trusopt 2% (*)] 1 drops LEFTEYE BID 10/23/15 Pantoprazole Sodium [Protonix 40mg 40 mg PO DAILY 10/23/15 (*)] Travoprost Z 0.004% [Travatan Z 1 drops EACHEYE HS 10/23/15 0.004% (*)] rOPINIRole HCL [Requip 2mg (*)] 4 mg PO HS 10/23/15 Ethacrynic Acid [Edecrin 25 MG (*)] 100 mg PO DAILY 11/08/17 Gabapentin [Neurontin 300 MG (*)] 300 mg PO TID 11/08/17 Hydrocodone/Acetaminophen [[place] 1 - 2 tab PO Q4H PRN 11/08/17 5/325 (*)] Labetalol HCl [Trandate 200 mg (*)] 600 mg PO TID 11/08/17 Potassium Chloride 20 meq PO BID 11/08/17 Spironolactone [Aldactone 25 MG 12.5 mg PO DAILY 11/08/17 (*)] Aspirin [Aspirin 325 mg (*)] 325 mg PO DAILY #30 tab 11/23/17 Cyclobenzaprine [Flexeril 10 MG 10 mg PO Q8HRS PRN tab 11/23/17 (*)] Famotidine [Pepcid 20 MG (*)] 20 mg PO BID tab 11/23/17 Ondansetron HCl Pf [Zofran 4 mg 4 mg IVP Q4HRS PRN vial 11/23/17 Inj (*)] celeCOXIB [Celebrex (*)] 200 mg PO DAILY cap 11/23/17 morphINE [morphINE 2mg/ml Inj (*)] 2 - 4 mg IVP Q3HRS PRN syr 11/23/17 oxyCODONE IR [Oxycodone Ir (*)] 5 - 10 mg PO Q3HRS PRN #30 tab 11/23/17 Medical Decision Making - Diagnostics EKG Interpretation: EKG interpreted by me reveals normal sinus rhythm, rate 58, borderline prolonged QT interval, no ST or T segment changes. ED Course/Re-evaluation: This patient presents after a true syncopal episode. Stat EKG reveals no evidence of ischemia or dysrhythmia. Physical exam is remarkable only for a scalp contusion. She has no headache or neck pain. I do not feel that neuro imaging is indicated. Discussion with Dr. Rony Orourke. Immediately after the syncopal episode, the patient's heart rate and blood pressure were normal. This does not fit with a vasovagal episode. Concern for cardiac etiology such as heart block or dysrhythmia. Will admit for observation. Hospitalist service was consulted for admission. Differential Diagnosis: Differential diagnosis includes though is not limited to cardiac dysrhythmia, CVA, TIA, GI bleed, sepsis, hypoglycemia. - Data Points Laboratory Results: Laboratory Results 11/22/18 11:19 11/22/18 11/22/18 11/22/18 11:41 11:19 11:19 WBC RBC Hgb Hct MCV MCH MCHC RDW Plt Count MPV Neut % (Auto) Lymph % (Auto) [place] % (Auto) Eos % (Auto) Baso % (Auto) Nucleat RBC Rel Count Absolute Neuts (auto) Absolute Lymphs (auto) Absolute Monos (auto) Absolute Eos (auto) Absolute Basos (auto) Absolute Nucleated RBC Immature Gran % Immature Gran # D-Dimer 0.87 ug/mLFEU H ug/mLFEU (0.00-0.50) Sodium 140 mEq/L mEq/L (135-145) Potassium 4.0 mEq/L mEq/L (3.5-5.2) Chloride 105 mEq/L mEq/L (97-110) Carbon Dioxide 24 mEq/l mEq/l (22-31) Anion Gap 11 mEq/L mEq/L (6-14) BUN 36 mg/dL H mg/dL (7-23) Creatinine 1.3 mg/dL H mg/dL (0.6-1.0) Estimated GFR 39 Glucose 101 mg/dL H mg/dL (70-100) Calcium 9.4 mg/dL mg/dL (8.5-10.4) POC Troponin I 0.00 ng/mL ng/mL (0.00-0.08) 11/22/18 11:19 WBC Pending RBC Pending Hgb Pending Hct Pending MCV Pending MCH Pending MCHC Pending RDW Pending Plt Count Pending MPV Pending Neut % (Auto) Pending Lymph % (Auto) Pending [place] % (Auto) Pending Eos % (Auto) Pending Baso % (Auto) Pending Nucleat RBC Rel Count Pending Absolute Neuts (auto) Pending Absolute Lymphs (auto) Pending Absolute Monos (auto) Pending Absolute Eos (auto) Pending Absolute Basos (auto) Pending Absolute Nucleated RBC Pending Immature Gran % Pending Immature Gran # Pending D-Dimer Sodium Potassium Chloride Carbon Dioxide Anion Gap BUN Creatinine Estimated GFR Glucose Calcium POC Troponin I Medications Given: Discontinued Medications Sodium Chloride (Ns) 500 mls @ 0 mls/hr IV EDNOW ONE; Wide Open PRN Reason: Protocol Stop: 11/22/18 11:26 Last Admin: 11/22/18 11:39 Dose: 500 mls Point of Care Test Results: Chemistry 11/22/18 11:41 POC Troponin I 0.00 ng/mL ng/mL (0.00-0.08) Departure - Departure Disposition: [facility] Inpatient Acute Clinical Impression: Syncope Qualifiers: Syncope type: unspecified Qualified Code(s): R55 - Syncope and collapse Condition: Good Referrals: Patient,NotPresent [Unknown] - As per Instructions
[2018-11-22 13:05] LABS: PLATELET COUNT 87 10^3/uL (150-400)
[2018-11-22] MEDS ORDERED: ONDANSETRON 4 MG/2 ML VIAL IVP PRN (13:10)
[2018-11-22] MEDS ORDERED: ACETAMINOPHEN 325 MG TAB PO PRN (13:10)
[2018-11-22] MEDS ORDERED: ONDANSETRON DISINTEGRATING 4 MG TAB PO PRN (13:10)
--- NOTE | 2018-11-22 13:20 | PDGENHP ---
History and Physical - Chief Complaint Syncope - History of Present Illness HPI: 78 y/o female with history of atrial fibrillation, HTN, and CHF presents to the emergency room from Dr. Rony Orourke's ([facility]) office after a syncopal event. She has had multiple events beginning September 2018. For today 's occasion, she was stepping onto a weight scale, felt lightheaded and fainted striking her head. There were many witnesses - she immediately came to, was coherent and could remember what took place. Her blood pressure and pulse were within normal range. She denies headache or vision changes, no chest pains or palpitations preceding the event. She does have a contusion on the back of her head but it is not tender when palpated. No nausea, vomiting. With all her syncopal occasions, she is standing and the syncopal event usually occurs shortly after standing from a sitting position. She is being admitted for observation and monitoring. Past Medical History 1. Atrial fibrillation 2. Congestive diastolic heart failure Class III 3. Asthma 4. CAD w/ stent 5. Chronic pain syndrome 6. Hx of DVT 7. GERD 8. Glaucoma 9. Hypertension 10. Obstructive sleep apnea 11. Pulmonary embolism (2003) 12. Restless leg syndrome 13. CKD III Past Surgical History 1. Hysterectomy 2. Bimalleolar fracture surgery (Nov 2017) 3. Right knee replacement (2012) 4. Partial Colectomy for diverticular bleeding 5. Appendectomy 6. Thoracotomy Social 1. Former smoker. Denies illicit drug use. Drinks one cocktail/night. 2. . History Information - Allergies/Home Medication List Allergies/Adverse Reactions: JOSÉ MIGUEL Inhibitors Allergy (Verified 11/22/18 11:16) Other-Enter Comments Home Medications: Atorvastatin Calcium [Lipitor 10 mg (*)] 10 mg PO HS 10/23/15 [Last Taken ] Brimonidine/Timolol [Combigan (*)] 1 drop EACHEYE BID 10/23/15 [Last Taken 11/22] Dorzolamide 2% [Trusopt 2% (*)] 1 drops LEFTEYE BID 10/23/15 [Last Taken ] Pantoprazole Sodium [Protonix 40mg (*)] 40 mg PO DAILY 10/23/15 [Last Taken 05/03] Travoprost Z 0.004% [Travatan Z 0.004% (*)] 1 drops EACHEYE HS 10/23/15 [Last Taken 11/21/18] rOPINIRole HCL [Requip 2mg (*)] 4 mg PO DAILY@1830 10/23/15 [Last Taken 11/21/18 ] Gabapentin [Neurontin 300 MG (*)] 600 mg PO BID 11/08/17 [Last Taken 11/22/18] Labetalol HCl [Trandate 200 mg (*)] 600 mg PO TID 11/08/17 [Last Taken 11/22/18] Potassium Chloride 20 meq PO DAILY 11/08/17 [Last Taken 11/22/18] Spironolactone [Aldactone 25 MG (*)] 12.5 mg PO DAILY 11/08/17 [Last Taken 11/22] Aspirin [Aspirin 81mg (*)] 162 mg PO HS 11/22/18 [Last Taken 11/21/18] Furosemide [Lasix 40 MG (*)] 80 mg PO DAILY 11/22/18 [Last Taken 11/22/18] Propylene Glycol/Peg 400/Pf [Systane 0.3-0.4% Eye Drops] 1 each OP DAILY PRN 05/03 [Last Taken Unknown] traMADol [Ultram 50 mg (*)] 50 mg PO Q4 PRN 11/22/18 [Last Taken Unknown] I have personally reviewed and updated: family history, medical history, social history, surgical history - Past Medical History coronary artery disease (Previous cardiac stent), GERD, glaucoma, hypertension, hyperlipidemia Additional medical history: Chronic kidney disease stage 3 with baseline creatinine 1.1-1.2. Peptic ulcer disease - Surgical History Additional surgical history: Spinal drainage 20 years ago. Partial colectomy for diverticulitis. Appendectomy. Hysterectomy. Total knee replacement - Family History Additional family history: Father with myocardial infarction at age 43, sibling seizure disorder - Social History Smoking Status: Never smoked Alcohol Use: Rarely Drug Use: None Review of Systems Review of Systems: ROS: 10pt was reviewed & negative except for what was stated in HPI & below Constitutional: Reports: no symptoms EENMT: Reports: no symptoms Cardiac: Reports: lightheadedness, syncope Respiratory: Reports: no symptoms Gastrointestinal: Reports: no symptoms Genitourinary: Reports: no symptoms Muscolosketal: Reports: back pain (Chronic) Skin: Reports: no symptoms Neurological: Reports: no symptoms Hematologic/Lymphatic: Reports: blood clots Immunologic/Allergy: Reports: other (JOSÉ MIGUEL inhibitors) Physical Exam Physical Exam: Lab data and imaging were reviewed. Case discussed with admitting physician, Dr. Santana Domínguez. Temp Pulse Resp BP Pulse Ox 36.4 C 57 L 18 121/70 H 97 11/22/18 11:16 11/22/18 12:44 11/22/18 12:44 11/22/18 12:44 11/22/18 12:44 Constitutional: no apparent distress, appears nourished, not in pain Eyes: PERRL, anicteric sclera, EOMI, other (Contusion on back of head, non- tender with palpation) Ears, Nose, Mouth, Throat: moist mucous membranes, hearing normal, ears appear normal, no oral mucosal ulcers Cardiovascular: regular rate and rhythym, no murmur, rub, or gallop, No edema Peripheral Pulses: 2+: dorsalis-pedis (R) (Radial 2+), dorsalis-pedis (L) ( Radial 2+) Respiratory: no respiratory distress, no rales or rhonchi, clear to auscultation Gastrointestinal: normoactive bowel sounds, soft, non-tender abdomen, no palpable masses Genitourinary: no bladder fullness, no bladder tenderness Skin: warm, normal color, no rashes or abrasions, no fluctuance, no induration, No mottled Musculoskeletal: full muscle strength, no muscle tenderness, normal joint ROM, no joint effusions Neurologic: AAOx3, sensation intact bilaterally, CN II-XII Intact Psychiatric: interacting appropriately, not anxious, not encephalopathic, thought process linear Lymph, Heme, Immunologic: no cervical LAD, no supraclavicular LAD Lab Data & Imaging Review 11/22/18 12:37 11/22/18 11:19 WBC 4.69 10^3/uL (3.80-9.50) 11/22/18 12:37 RBC 3.73 10^6/uL (4.18-5.33) L 11/22/18 12:37 Hgb 11.0 g/dL (12.6-16.3) L 11/22/18 12:37 Hct 34.4 % (38.0-47.0) L 11/22/18 12:37 MCV 92.2 fL (81.5-99.8) 11/22/18 12:37 MCH 29.5 pg (27.9-34.1) 11/22/18 12:37 MCHC 32.0 g/dL (32.4-36.7) L 11/22/18 12:37 RDW 13.4 % (11.5-15.2) 11/22/18 12:37 Plt Count 87 10^3/uL (150-400) L 11/22/18 12:37 MPV 13.7 fL (8.7-11.7) H 11/22/18 12:37 Neut % (Auto) 69.4 % (39.3-74.2) 11/22/18 12:37 Lymph % (Auto) 13.4 % (15.0-45.0) L 11/22/18 12:37 [place] % (Auto) 13.6 % (4.5-13.0) H 11/22/18 12:37 Eos % (Auto) 3.2 % (0.6-7.6) 11/22/18 12:37 Baso % (Auto) 0.2 % (0.3-1.7) L 11/22/18 12:37 Nucleat RBC Rel Count 0.0 % (0.0-0.2) 11/22/18 12:37 Absolute Neuts (auto) 3.25 10^3/uL (1.70-6.50) 11/22/18 12:37 Absolute Lymphs (auto) 0.63 10^3/uL (1.00-3.00) L 11/22/18 12:37 Absolute Monos (auto) 0.64 10^3/uL (0.30-0.80) 11/22/18 12:37 Absolute Eos (auto) 0.15 10^3/uL (0.03-0.40) 11/22/18 12:37 Absolute Basos (auto) 0.01 10^3/uL (0.02-0.10) L 11/22/18 12:37 Absolute Nucleated RBC 0.00 10^3/uL (0-0.01) 11/22/18 12:37 Immature Gran % 0.2 % (0.0-1.1) 11/22/18 12:37 Immature Gran # 0.01 10^3/uL (0.00-0.10) 11/22/18 12:37 D-Dimer 0.87 ug/mLFEU (0.00-0.50) H 11/22/18 11:19 Sodium 140 mEq/L (135-145) 11/22/18 11:19 Potassium 4.0 mEq/L (3.5-5.2) 11/22/18 11:19 Chloride 105 mEq/L (97-110) 11/22/18 11:19 Carbon Dioxide 24 mEq/l (22-31) 11/22/18 11:19 Anion Gap 11 mEq/L (6-14) 11/22/18 11:19 BUN 36 mg/dL (7-23) H 11/22/18 11:19 Creatinine 1.3 mg/dL (0.6-1.0) H 11/22/18 11:19 Estimated GFR 39 11/22/18 11:19 Glucose 101 mg/dL (70-100) H 11/22/18 11:19 Calcium 9.4 mg/dL (8.5-10.4) 11/22/18 11:19 POC Troponin I 0.00 ng/mL (0.00-0.08) 11/22/18 11:41 Assessment & Plan Plan: This is a 78 y/o female with history of HTN, CAD w/stent, CHF and CKD presenting after syncopal episode. Only prodromal indicator was lightheadedness. No recent changes to her medications and nothing out of the ordinary. # Syncope: Since September 2018, she has had multiple events. Today she was being evaluated by Dr. Orourke when an event struck, and she has been sent here for admittance for observation and monitoring. Cath 11/11/2015: left heart : No LM with separate ostia, LAD unobstructed, LCX stent widely patent w/o new obstruction, RCA dominant vessel w/o obstruction, EDP 25 mmHg, LVEF 70% and wall motion normal. Right heart: widely patent circumflex artery stent, diffuse nonobstructive atherosclerosis, preserved LV systolic function with elevated filling pressure of 25 mmHg, pulmonary HTN secondary to diastolic dysfunction. ECHO: 09/11/2017: There is a sigmoid shaped septum present, which is a normal finding. Normal global systolic LV function. EF is 66%. Moderate to severe mitral annular calcification. Moderate mitral valve regurgitation is present. The aortic valve is tri-leaflet. Aortic valve mean gradient is 5 mmHg. -First trop negative (0.00). Cycle trop x 2 -Cont tele monitoring -Orthostatic vitals QShift -Ice pack to head; continue to monitor closely considering head injury, not AC -I spoke with Dr. Orourke today - no need for a cards consult. At time of discharge, she will need a 30-day monitoring. #CHF: Euvolemic, CTAB, no JVD. Will continue furosemide, spironolactone #HTN: Currently stable. Will be checking orthostatic vitals. Continue to monitor. Will continue ASA, labetalol. #RLS: on requip. #Chronic pain: reports pain in thoracic region and does receive periodic steroid injections. On tramadol, gabapentin #GERD: on pantoprazole Diet: Cardiac VTE ppx: SCDs Code: Full Dispo: Admit to obs
[2018-11-22] MEDS ORDERED: PEG OP PRN (13:56)
[2018-11-22] MEDS ORDERED: PROPYLENE GLYCOL OP PRN (13:56)
[2018-11-22] MEDS ORDERED: traMADol 50 MG TAB PO PRN (13:56)
--- NOTE | 2018-11-22 14:33 | CPEKG ---
Test Reason : OPEN Blood Pressure : / mmHG Vent. Rate : 058 BPM Atrial Rate : 059 BPM P-R Int : 199 ms QRS Dur : 090 ms QT Int : 499 ms P-R-T Axes : 009 001 006 degrees QTc Int : 491 ms Sinus rhythm Borderline prolonged QT interval Confirmed by Ashley Faust ([id number]) on 11/22/2018 2:33:14 PM Referred By: ASHLEY FAUST Confirmed By:Ashley Faust
[2018-11-22] MEDS ORDERED: LABETALOL HCL 200 MG TAB PO SCH (16:00)
[2018-11-22] MEDS: LABETALOL HCL 200 MG TAB PO SCH (20:47)
[2018-11-22] MEDS: GABAPENTIN 300 MG CAP PO SCH (20:47)
[2018-11-22] MEDS ORDERED: ASPIRIN 81 MG CHEWABLE TAB PO SCH (21:00)
[2018-11-22] MEDS ORDERED: TRAVOPROST Z 0.004% 2.5 ML OPHT.BTL EACHEYE SCH (21:00)
[2018-11-22] MEDS ORDERED: ATORVASTATIN CALCIUM 10 MG TAB PO SCH (21:00)
[2018-11-22] MEDS: DORZOLAMIDE 2% OPTH DROPS LEFTEYE SCH (22:13)
[2018-11-22] MEDS: BRIMONIDINE/TIMOLOL 5 ML OPHT.BTL EACHEYE SCH (22:13)
[2018-11-22] MEDS ORDERED: TEARS/DEXTRAN 70/HYPROMELLOSE 15 ML OPHT.BTL EACHEYE PRN (22:30)
[2018-11-23] MEDS: BRIMONIDINE/TIMOLOL 5 ML OPHT.BTL EACHEYE SCH (08:34)
[2018-11-23] MEDS: DORZOLAMIDE 2% OPTH DROPS LEFTEYE SCH (08:35)
[2018-11-23] MEDS: GABAPENTIN 300 MG CAP PO SCH (08:35)
[2018-11-23] MEDS ORDERED: POTASSIUM CL 20 MEQ TAB PO SCH (09:00)
[2018-11-23] MEDS ORDERED: PANTOPRAZOLE SODIUM 40 MG TAB PO SCH (09:00)
[2018-11-23] MEDS ORDERED: FUROSEMIDE 80 MG TAB PO SCH ×2 (09:00→11:26)
[2018-11-23] MEDS ORDERED: SPIRONOLACTONE 25 MG TAB PO SCH (09:00)
[2018-11-23] MEDS ORDERED: (Propylene Glycol [Systane Balance] 1 DROP) EACHEYE PRN (09:47)
[2018-11-23 11:16] VITALS: BP 130/68
[2018-11-23] MEDS: LABETALOL HCL 200 MG TAB PO SCH (11:56)
--- NOTE | 2018-11-23 12:26 | PDCARPN ---
Cardiology Progress Note Chief Complaint: Syncope Assessment/Plan: Syncope-at office yesterday when stepped on scale passed out. Admit Cr 1.3/ BUN 36 today after decreased Lasix Cr 1.0 Bun 25. Her BP was low yesterday with orthostasis likely related to over diuresis. She is currently on Labetalol 600 mg TID. She has not had lightheadedness or dizziness today. She has been up in the room. She is eager to go home. GERD--Hospitalist has been following. PPI was added. Subjective: I feel much better today. I am ready to go home. Reviewed/Discussed With: family, hospitalist, multidisciplinary team Time Spent with Patient: greater than 25 minutes Time Spent with Patient: Greater than 25 minutes spent on this patients care, greater than 50% of time spent counseling, educating, and coordinating care regarding the above mentioned plan. Objective: Vital Signs (8 Hrs) Temp Pulse Pulse Pulse Pulse Resp BP 11/23/18 11:12 36.7 C 78 20 130/68 H 11/23/18 07:46 64 76 62 11/23/18 07:28 36.7 C 62 18 162/89 H BP BP BP Pulse Ox 11/23/18 11:12 92 11/23/18 07:46 134/72 H 87/52 L 160/73 H 11/23/18 07:28 95 Intake/Output (24 Hrs) 11/22/18 11/23/18 11/24/18 05:59 05:59 05:59 Intake Total 780 Balance 780 Intake: Oral (ml) 780 Other: Weight 64.2 kg Number of Voids Toilet 2 Result Diagrams: 11/23/18 03:20 11/23/18 09:53 Cardiac Labs: Cardiac Lab Results (72 Hrs) 11/22/18 16:45 Troponin I < 0.012 - Physical Exam Constitutional: no apparent distress Cardiovascular: regular rate and rhythm, no murmurs, no rubs, no gallops Peripheral Pulses: 2+: dorsalis-pedis (R), dorsalis-pedis (L) Respiratory: clear to auscultate bilat, no crackles, no wheezes Skin: warm, no edema Neurologic: AAOx3 Psychiatric: cooperative, interactive ICD10 Worksheet Patient Problems: Problems Problem Status Onset Congestive heart failure Acute Hypertension Acute Syncope Acute Influenza Acute Bimalleolar ankle fracture Acute
--- NOTE | 2018-11-23 13:48 | ASMTLACE ---
[facility] Length of stay for Answers: 1 day current admission Acuity / Level of Answers: No Care: Did the patient have an inpatient admission? Comorbidities - select Answers: Congestive heart failure all that apply Coronary Artery Disease Moderate or severe liver or renal disease Opioid dependence / Chronic pain Other Notes: HTN; Hx of PE; AFib # of Emergency department Answers: 1-2 visits in the last 6 months Score: 15 Date Signed: 11/23/2018 01:48 PM Electronically Signed By:Honey Simmons RN
--- NOTE | 2018-11-23 13:48 | ASDISCHSUM ---
Discharge Information Plan Status:Home with No Needs Medically Cleared to Leave:11/22/2018 Discharge Date:11/23/2018 01:30 PM CM D/C Disposition:Home, Routine, Self-Care ADT D/C Disposition:Home, Routine, Self-Care Projected Discharge Date:11/23/2018 01:30 PM Transportation at D/C: Discharge Delay Reason: Follow-Up Date:11/23/2018 01:30 PM Discharge Slot: Final Diagnosis: Placement Information Patient Contact Information Contact Name:CAMI Relationship:Daughter Address:[address] [place] City:[place] Alternate Phone: State/Zip Code:[place] [address] Email: Financial Information Financial Class:Medicare Advantage Plans Primary Plan Desc:[employer]RIGO TELLEZ MEDICARE ADV Primary Plan Number:[id number] Secondary Plan Desc: Secondary Plan Number: Assessment Information Intervention Information
--- NOTE | 2018-11-23 14:39 | PDDCSUM ---
Discharge Summary Discharge Summary: Date of Admission: 11/22/2018 Date of Discharge: 11/23/2018 Consults: Cardiology Followup: PCP, Cardiology Hospital Course Problem List: This is a 78 y/o female with history of HTN, CAD w/stent, CHF and CKD presenting after syncopal episode. Only prodromal indicator was lightheadedness. No recent changes to her medications and nothing out of the ordinary. # Syncope: Since September 2018, she has had multiple events. Prior to admission she was being evaluated by Dr. Orourke when an event struck, and she has been sent here for admittance for observation and monitoring. Cath 2015: left heart: No LM with separate ostia, LAD unobstructed, LCX stent widely patent w/o new obstruction, RCA dominant vessel w/o obstruction, EDP 25 mmHg, LVEF 70% and wall motion normal. Right heart: widely patent circumflex artery stent, diffuse nonobstructive atherosclerosis, preserved LV systolic function with elevated filling pressure of 25 mmHg, pulmonary HTN secondary to diastolic dysfunction. ECHO: 09/11/2017: There is a sigmoid shaped septum present, which is a normal finding. Normal global systolic LV function. EF is 66%. Moderate to severe mitral annular calcification. Moderate mitral valve regurgitation is present. The aortic valve is tri-leaflet. Aortic valve mean gradient is 5 mmHg. -Troponins negative during admission -Cont tele monitoring, did not show any e/o arrythmia, will be d/c with 30 day Heart Monitor -Orthostatic vitals were performed which were positive, likely etiology -Decreased Lasix 40 gm qd from 80 mg qd, discussed to watch out for signs/ symptoms of volume overload -Decreased Labetalol 600 mg TID to BID #SHANEL: Cr 1.3 on admission from baseline 1.0. Likely prerenal in setting of orthostatic hypotension, improved to 1.0 on day of discharge s/p IVF #CHF: Euvolemic, CTAB, no JVD. Will continue furosemide (at half of home dose as above), spironolactone #HTN: Currently stable. Continue ASA, labetalol (decreased dose as above) #RLS: on requip. #Chronic pain: reports pain in thoracic region and does receive periodic steroid injections. On tramadol, gabapentin #GERD: on pantoprazole Time spent on discharge was >35 minutes with >50% of time spent on patient education and counseling.
[2018-11-23] MEDS ORDERED: LABETALOL HCL 200 MG TAB PO SCH (21:00)
== END 2018-11-23 13:30 | disposition home or self-care (01) ==
LOC: EDUNIT# → F2W 13:15
PROVIDERS: ADMIT Internal Medicine; ATTEND Internal Medicine
DX: R55 Syncope and collapse (principal); N17.9 Acute kidney failure, unspecified; I13.0 Hypertensive heart and chronic kidney disease with heart failure and stage 1 through stage 4 chronic kidney disease, or unspecified chronic kidney disease; E86.9 Volume depletion, unspecified; I50.32 Chronic diastolic (congestive) heart failure; N18.3 Chronic kidney disease, stage 3 (moderate); I27.29 Other secondary pulmonary hypertension; I95.1 Orthostatic hypotension; I25.10 Atherosclerotic heart disease of native coronary artery without angina pectoris; I34.0 Nonrheumatic mitral (valve) insufficiency; G25.81 Restless legs syndrome; G89.4 Chronic pain syndrome; K21.9 Gastro-esophageal reflux disease without esophagitis; H40.9 Unspecified glaucoma; J45.909 Unspecified asthma, uncomplicated; I48.91 Unspecified atrial fibrillation; G47.33 Obstructive sleep apnea (adult) (pediatric); Z79.82 Long term (current) use of aspirin; Z86.711 Personal history of pulmonary embolism; Z86.718 Personal history of other venous thrombosis and embolism; Z87.891 Personal history of nicotine dependence; Z87.19 Personal history of other diseases of the digestive system; Z95.5 Presence of coronary angioplasty implant and graft; Z96.651 Presence of right artificial knee joint; Z90.49 Acquired absence of other specified parts of digestive tract; Z90.710 Acquired absence of both cervix and uterus
CPT/HCPCS: 93005; 96360; 99285; G0378; 84484-ER

== ENCOUNTER → 2018-11-30 | Outpatient (CLI) | payer OTHER | LOC: FIMAGING 16:00 | PROVIDERS: ATTEND Internal Medicine | DX: J18.8 Other pneumonia, unspecified organism (principal); I50.9 Heart failure, unspecified ==

== ENCOUNTER → 2019-01-25 | Outpatient (CLI) | payer OTHER | LOC: FIMAGING 09:44 | PROVIDERS: ATTEND Internal Medicine Rheumatology | DX: Z13.820 Encounter for screening for osteoporosis (principal); S82.899A Other fracture of unspecified lower leg, initial encounter for closed fracture; M85.89 Other specified disorders of bone density and structure, multiple sites ==